=== PATIENT | female | born 1985 | race Caucasian/White ===

== ENCOUNTER → 2016-10-21 | Outpatient (CLI) | payer OTHER | END | disposition home or self-care (01) | LOC: C.LABMFLN 17:02 | PROVIDERS: ATTEND Family Medicine | DX: R35.0 Frequency of micturition (principal); J02.9 Acute pharyngitis, unspecified ==

== ENCOUNTER → 2016-12-27 | Outpatient (CLI) | payer OTHER ==
[2016-12-27 10:06] LABS: BASO % 0.3 %; BASO ABS # 0.02 K/uL (0-0.2); COMPLETE YES; EOS % 2.9 %; HEMATOCRIT 36.7 % (37-47); IG% 0.3 %; LYMPH % 19.4 %; LYMPH ABS # 1.29 K/uL (1.2-3.4); MEAN CELL VOLUME 88.6 fL (80-100); MEAN CORPUSCULAR HEMOGLOBIN 31.6 pg (25-34); MEAN CORPUSCULAR HGB CONC 35.7 g/dl (32-36); MEAN PLATELET VOLUME 9.7 fL (7.4-10.4); MONO % 7.8 %; NEUT % 69.3 %; PLATELET COUNT 211 K/uL (130-400); RED BLOOD COUNT 4.14 M/uL (4.2-5.4); WHITE BLOOD COUNT 6.65 K/uL (4.8-10.8)
[2016-12-27 11:06] LABS: URINE APPEARANCE CLEAR (CLEAR); URINE BILIRUBIN NEG (NEG); URINE COLOR YELLOW; URINE NITRITE NEG (NEG); URINE SPECIFIC GRAVITY 1.019 (1.000-1.030); UROBILINOGEN NEG (NEG)
[2016-12-27 11:13] LABS: MANUAL MICROSCOPIC REQUIRED? NO; REVIEW REQ? NO
[2016-12-30 10:27] LABS: CHLAMYDIA TRACH RNA*** NOT DETECTED (NOT DETECTED); GC (NEIS GONORRHOEAE)RNA** NOT DETECTED (NOT DETECTED)
== END | disposition home or self-care (01) ==
LOC: C.LAB1850 09:10
PROVIDERS: ATTEND Obstetrics & Gynecology
DX: Z34.01 Encounter for supervision of normal first pregnancy, first trimester (principal)

== ENCOUNTER → 2017-01-23 | Outpatient (CLI) | payer OTHER ==
[2017-01-23 15:37] LABS: URINE APPEARANCE CLEAR (CLEAR); URINE BILIRUBIN NEG (NEG); URINE COLOR YELLOW; URINE NITRITE NEG (NEG); URINE SPECIFIC GRAVITY 1.033 (1.000-1.030); UROBILINOGEN NEG (NEG); ZZUR CULT IF INDIC CLEAN CATCH NO
[2017-01-23 15:45] LABS: MANUAL MICROSCOPIC REQUIRED? NO; REVIEW REQ? NO
== END | disposition home or self-care (01) ==
LOC: C.LAB 14:56
PROVIDERS: ATTEND Family Medicine
DX: Z33.1 Pregnant state, incidental (principal); R10.2 Pelvic and perineal pain

== ENCOUNTER → 2017-02-12 | Outpatient (CLI) | payer OTHER ==
[~2017-02-12] MED LIST: ADVIN10/60 INH; CEPH500C2 PO; CETI10TA84 PO; PRENTAB26 PO; VNTHFA/IN INH
== END | disposition home or self-care (01) ==
LOC: C.LAB1850 16:20
PROVIDERS: ATTEND Obstetrics & Gynecology
DX: Z34.02 Encounter for supervision of normal first pregnancy, second trimester (principal)

== ENCOUNTER 2017-03-18 13:59 | Emergency (ER) | payer OTHER ==
[~2017-03-18] VITALS: Ht 162.6 cm; Wt 71.9 kg
[2017-03-18 14:11] VITALS: TEMP 36.8; Ht 162.6 cm; Wt 71.9 kg
[2017-03-18] MEDS ORDERED: XYLOCAINE 1%/SOD BICARB 20 ML VIAL INFIL ONE (14:45)
[2017-03-18] MEDS ORDERED: PRENTAB26 PO (14:46)
[2017-03-18] MEDS ORDERED: VNTHFA/IN INH (14:46)
[2017-03-18] MEDS ORDERED: ADVIN10/60 INH (14:46)
[2017-03-18] MEDS ORDERED: CETI10TA84 PO (14:46)
[2017-03-18] MEDS ORDERED: CEPH500C2 PO (15:32)
[2017-03-18 16:05] VITALS: BP 125/78; PULSE 92; O2SAT 98
--- NOTE | 2017-03-18 16:32 | EMERGENCY ROOM VISIT NOTE ---
History First contact with patient: 14:28 Chief Complaint: INFECTION Stated Complaint: INFECTION L GROIN,RED,INFALMMED,POSS ABSCESS Nursing Triage Summary: Pt states she is 21 wks . Pt reports "I have an infection in my left groin area from when I was shaving. I had it drained last week and was on clinda. I still have a couple days left of that, but it's just getting worse." History of Present Illness The patient is a 31 year old female who is 21 weeks presents to the Emergency Room with complaints of abscess in the left wing region. The patient states that her father is Dr. Horner in last week she had him drain the abscess. He placed her on clindamycin. She has been taking the clindamycin but states there has been no improvement of the abscess. The patient denies any current drainage. She states it is very painful. She states that her father did not culture the drainage when he did the I&D. Review of Systems 10 system review was performed and was negative unless stated otherwise history of present illness. Past Medical/Surgical History Asthma, skin problems Social History Smoking Status: Never Smoker Alcohol Use: none Drug Use: none Marital Status: Housing Status: lives with family Occupation Status: employed Current/Historical Medications Scheduled Cephalexin Monohydrate (Keflex), 500 MG PO QID Cetirizine (Zyrtec), 10 MG PO QPM Fluticasone Prop/Salmeterol (Advair Diskus 100/50 60 Dose), 1 PUFF INH BID Multivit/Min/Iron/Fol Ac/Pren ( Vitamin), 1 TAB PO DAILY Scheduled PRN Albuterol Hfa (Ventolin Hfa), 2-4 PUFFS INH Q6H PRN for SOB/Wheezing Physical Exam Vital Signs Date Time Temp Pulse Resp B/P (MAP) Pulse Ox O2 Delivery O2 Flow Rate FiO2 03/18/17 16:05 92 18 125/78 98 03/18/17 14:11 36.8 106 18 132/75 98 Room Air Physical Exam GENERAL: 31-year-old female appears in no acute distress. MENTAL Status: Alert and oriented 3. ABDOMEN: Abdomen is protuberant consistent with . There is an erythematous raised lump in the left groin which is tender to palpation. There is central fluctuance noted but no drainage noted. Medical Decision & Procedures Procedure I&D of abscess: The area was prepped with Betadine 3. The area was anesthetized with 1% buffered lidocaine. A small incision was made using an 11 blade scalpel. A large amount of purulent drainage was expressed. A culture was obtained. Using a forceps the loculated area inside was broken up any large amount of very thick yellow drainage was expressed. Antibiotic ointment and a bandage was applied. The patient tolerated procedure well. ED Course The patient was evaluated. I&D was performed as above. The patient was discharged home in stable condition. Medical Decision Differential diagnosis include abscess, folliculitis, lymphadenopathy [place] Drug Monitoring Program Search Results: patient reviewed within database Medication Reconcilliation Current Medication List: was personally reviewed by [place] Blood Pressure Screening Patient's blood pressure: Normal blood pressure Impression Primary Impression: Abscess Departure Information Dispostion Home / Self-Care Condition GOOD Prescriptions Cephalexin Monohydrate (KEFLEX) 500 Mg Cap 500 MG PO QID for 10 Days, #40 CAP Prov: Lu Teague, PA-C 03/18/17 Forms WORK / SCHOOL INSTRUCTIONS, HOME CARE DOCUMENTATION FORM, IMPORTANT VISIT INFORMATION Patient Instructions My [facility] Additional Instructions Tylenol as needed for pain. Change bandage daily as it he comes soiled. Warm compresses to the affected area as much as possible. Discontinue clindamycin. Take Keflex as prescribed.
== END 2017-03-18 16:06 | disposition home or self-care (01) ==
LOC: C.EDB 14:02 → C.EDD 16:06
DX: O99.712 Diseases of the skin and subcutaneous tissue complicating pregnancy, second trimester (principal); Z3A.21 21 weeks gestation of pregnancy

== ENCOUNTER → 2017-05-07 | Outpatient (CLI) | payer OTHER ==
[~2017-05-07] MED LIST changes: -CEPH500C2 PO
[2017-05-07 17:08] LABS: HEMATOCRIT 37.4 % (37-47); HEMOGLOBIN 12.8 g/dL (12.0-16.0)
== END | disposition home or self-care (01) ==
LOC: C.LAB1850 15:30
PROVIDERS: ATTEND Obstetrics & Gynecology
DX: Z34.03 Encounter for supervision of normal first pregnancy, third trimester (principal); Z3A.00 Weeks of gestation of pregnancy not specified

== ENCOUNTER → 2017-05-17 | Outpatient (CLI) | payer OTHER | END | disposition home or self-care (01) | LOC: C.LAB 08:04 | PROVIDERS: ATTEND Obstetrics & Gynecology | DX: O28.1 Abnormal biochemical finding on antenatal screening of mother (principal); Z3A.00 Weeks of gestation of pregnancy not specified ==

== ENCOUNTER 2017-05-31 20:22 | Outpatient (CLI) | payer OTHER | END 2017-05-31 21:28 | disposition home or self-care (01) | LOC: C.LD 20:22 → C.OPB 20:22 | PROVIDERS: ATTEND Obstetrics & Gynecology | DX: O36.8190 Decreased fetal movements, unspecified trimester, not applicable or unspecified (principal); Z3A.00 Weeks of gestation of pregnancy not specified ==

== ENCOUNTER → 2017-07-01 | Outpatient (CLI) | payer OTHER | END | disposition home or self-care (01) | LOC: C.LABSPEC 17:36 | PROVIDERS: ATTEND Obstetrics & Gynecology | DX: Z34.03 Encounter for supervision of normal first pregnancy, third trimester (principal) ==

== ENCOUNTER 2019-03-25 19:49 | Inpatient (IN) ==
[2019-03-25] MEDS ORDERED: ONDANSETRON INJ 2 MG/ML 2 ML VIAL IV STA (21:34)
[2019-03-25] MEDS ORDERED: SODIUM CHLORIDE 0.9% 1000ML 1,000 ML IV ONE (21:34)
[2019-03-25] MEDS ORDERED: MoRPHine SULFATE 4 MG/ML 1 ML CARP\\VIAL IV STA (21:34)
[2019-03-25] MEDS ORDERED: ACETAMINOPHEN 1,000 MG/100 ML VIAL IV STA (21:36)
[2019-03-25] MEDS ORDERED: METOCLOPRAMIDE HCL INJ 5 MG/ML 2 ML VIAL IV STA (22:12)
[2019-03-25] MEDS ORDERED: cefOXitin 1,000 MG/50 ML BAG IV STA (23:37)
--- NOTE | 2019-03-26 00:01 | History & Physical Report ---
Date of Service March 25, 2019 Assessment & Plan (1) Biliary colic: Patient is for laparoscopic cholecystectomy We will admit her to the hospital proceed in the morning History of Present Illness Primary Care Provider: Bahman Horner MD Patient has been having right upper quadrant pain and nausea Over the past 24 to 48 hours which has persisted She had an ultrasound which shows a stone in the gallbladder and significant distention Allergies Allergy/AdvReac Type Severity Reaction Status Date / Time Iodinated Contrast Media Allergy Intermediate ASTHMA Verified 03/25/19 21:47 ATTACK Intravenous Dye Allergy breathing Uncoded 03/25/19 21:47 difficulty Home Medications Home Medications Medication Instructions Recorded Confirmed Type albuterol sulfate 90 mcg/actuation 2 puffs INH UD PRN gm 09/17/18 03/25/19 History aerosol inhaler cetirizine 10 mg tablet 10 mg PO DAILY 09/17/18 03/25/19 History montelukast 10 mg tablet 10 mg PO QPM 09/17/18 03/25/19 History L norgest/e.estradiol-e.estrad 1 tab PO DAILY #91 ea 12/29/18 03/25/19 Rx 0.15 mg-30 mcg (84)/10 mcg(7) tabs,3mos amitriptyline 10 mg PO DIRECTED PRN 03/25/19 03/25/19 History ondansetron HCl 4 mg PO DIRECTED PRN 03/25/19 03/25/19 History Past Med/Surg History Social History Feels Safe at Home: Yes Smoking Status: Never smoker Hx Alcohol Use: No Review of Systems All systems reviewed & are unremarkable except as noted in HPI & below Physical Exam Constitutional: well developed and well nourished; no acute distress Eyes: + anicteric sclerae Respiratory: normal respiratory effort; no respiratory distress Cardiovascular: Rate/Rhythm: regular rate Gastrointestinal (Abdomen): Inspection/Auscultation: abdomen not distended Skin: no rashes, warm and dry Neurologic: awake Psychiatric: Orientation: alert Results & Data Vital Signs (Past 12 Hours) Vital Signs Temp Pulse Pulse Resp BP BP Pulse Ox 03/25/19 23:22 85 20 115/76 99 03/25/19 20:17 36.9 C 88 20 125/85 98 I have reviewed her ultrasound
--- NOTE | 2019-03-26 00:38 | Emergency Department Note ---
History of Present Illness General Chief complaint: Abdominal Pain Stated complaint: RUQ PAIN, SEVERE NAUSEA History of Present Illness Maximum Pain Intensity: 4 This 33 yo presents to the ER complaining of abdominal pain Location: Right upper quadrant Quality: Painful Severity: Moderate Duration: 1 day Timing: Started yesterday Context: Pain persisted and patient came in Modifying factors: better with nothing; worse with palpation Patient spoke to the on-call doctor and had outpatient labs and ultrasound. Pain persisted and patient came in. All testing was done earlier this afternoon. Patient denies chest pain, dyspnea, fevers, vomiting, diarrhea, urinary symptoms. Symptoms were worse with eating grilled cheese with tomato. Home Medications Home Medications Medication Instructions Recorded Confirmed Type albuterol sulfate 90 mcg/actuation 2 puffs INH UD PRN gm 09/17/18 03/25/19 History aerosol inhaler cetirizine 10 mg tablet 10 mg PO DAILY 09/17/18 03/25/19 History montelukast 10 mg tablet 10 mg PO QPM 09/17/18 03/25/19 History L norgest/e.estradiol-e.estrad 1 tab PO DAILY #91 ea 12/29/18 03/25/19 Rx 0.15 mg-30 mcg (84)/10 mcg(7) tabs,3mos amitriptyline 10 mg PO DIRECTED PRN 03/25/19 03/25/19 History ondansetron HCl 4 mg PO DIRECTED PRN 03/25/19 03/25/19 History Allergies Allergy/AdvReac Type Severity Reaction Status Date / Time Iodinated Contrast Media Allergy Intermediate ASTHMA Verified 03/25/19 21:47 ATTACK Intravenous Dye Allergy breathing Uncoded 03/25/19 21:47 difficulty Past Med/Surg History Medical History Asthma Breast lump IBS (irritable bowel syndrome) Migraine Suprapubic discomfort Surgical History S/P colonoscopy Status post wisdom tooth extraction Family History Grandmother (Maternal) Stroke Grandfather (Maternal) Hyperlipidemia Father Hypertension Other Thyroid disease Denies family history of Ovarian cancer Breast cancer Colorectal cancer Social History Feels Safe at Home: Yes Smoking Status: Never smoker Hx Alcohol Use: No Review of Systems A total of 10 systems reviewed and were otherwise negative Physical Exam Vital Signs Vital Signs - 24 hr 03/25/19 20:17 03/25/19 23:22 Temperature 36.9 C Temperature Source Oral Pulse Rate 88 Pulse Rate [Right Finger] 85 Respiratory Rate 20 20 Respiratory Effort / Characteristics Non-Labored Spontaneous Non-Labored Respiratory Depth Normal Normal Blood Pressure 125/85 Blood Pressure [Left Arm] 115/76 Blood Pressure Mean 98 Blood Pressure Mean [Left Arm] 89 Blood Pressure Position [Left Arm] Sitting Pulse Oximetry 98 99 Oxygen Delivery Method Room Air Room Air Sepsis Action Taken by Nursing No Action Required VITALS: Vitals are noted on the nurse's note and reviewed by myself. Vital signs stable. GENERAL: Pleasant female, in no acute distress, nondiaphoretic, well-developed well-nourished. SKIN: Capillary reflex less than 2 seconds. HEENT: Normocephalic. PERRLA. EOMI. Nares patent. Mucous membranes moist. Neck is supple without nuchal rigidity. HEART: Regular rate and rhythm without murmurs gallops or rubs. LUNGS: Clear to auscultation bilaterally without wheezes, rales or rhonchi. No retractions or accessory muscle use. ABDOMEN: Positive bowel sounds x 4. Normal tympanic percussion. Soft, tender to palpation right upper quadrant, without masses or organomegaly. Bedoya sign positive. No guarding or rebound tenderness. No CVA tenderness MUSCULOSKELETAL: No gross musculoskeletal defects. NEURO: Patient was alert and oriented to person place and time. No focal neurological deficits. Course Administered Medications Discontinued Medications Sodium Chloride (Nss 1000ml) 1,000 mls @ 999 mls/hr IV .Q1H1M ONE Stop: 03/25/19 22:34 Last Infusion: 03/25/19 23:23 Dose: 0 mls/hr Documented by: [id number] Admin: 03/25/19 21:57 Dose: 999 mls/hr Documented by: [id number] Acetaminophen (Ofirmev) 1,000 mg in 100 mls @ 400 mls/hr IV NOW STA Stop: 03/25/19 21:50 Last Infusion: 02/13/20 22:27 Dose: 0 mls/hr Documented by: [id number] Admin: 03/25/19 21:58 Dose: 400 mls/hr Documented by: [id number] Cefoxitin Sodium (Mefoxin) 1,000 mg in 50 mls @ 100 mls/hr IV NOW STA Stop: 03/26/19 00:06 Last Admin: 03/26/19 00:02 Dose: 100 mls/hr Documented by: [id number] Metoclopramide HCl (Reglan) 10 mg IV NOW STA Stop: 03/25/19 22:13 Last Admin: 03/25/19 22:17 Dose: 10 mg Documented by: [id number] Morphine Sulfate (Morphine Sulfate) 4 mg IV NOW STA Stop: 03/25/19 21:35 Last Admin: 03/25/19 22:18 Dose: Not Given Documented by: [id number] Ondansetron HCl (Zofran) 4 mg IV NOW STA Stop: 03/25/19 21:35 Last Admin: 03/25/19 22:18 Dose: Not Given Documented by: [id number] Medical Decision Making Medical Records Attestation: I reviewed the patient's medical records. Home Medications Current Medication List: was personally reviewed by me Laboratory Data Attestation: I reviewed the patient's lab results. Lab Results 03/25/19 03/25/19 Range/Units 22:00 22:09 Lipase 193 ([id number]) U/L POC Ur Test NEG (NEG) Imaging Data Attestation: I personally reviewed and interpreted this imaging study as follows: MDM Narrative Prior records/ancillary studies reviewed. Triage Nursing notes reviewed. Additional history obtained from . The patient's history was concerning for abdominal pain. Differential diagnosis: Etiologies such as appendicitis, diverticulitis, PUD, biliary pathology, UTI, pancreatitis, obstruction, mesenteric ischemia, aortic pathology, infections, inflammatory bowel disease, renal colic, as well as others were entertained. Physical examination findings: As above. ER treatment provided: IV fluids, Reglan, Tylenol On reassessment the patient felt better. Diagnostics interpreted by me: The labs revealed no leukocytosis, negative hCG Imaging studies: US RUQ: 8 x 6 x 6 mm right hepatic are rounded hyperechoic lesion may represent a small hemangioma.. Consider follow-up. 1.2 cm stone at the gallbladder fundus. Negative for pericholecystic fluid or gallbladder wall thickening. Distended gallbladder at 9 cm. Common bile duct is normal at 4.5 mm. Radiologist: Christiano Elias MD Consultation: A consultation was placed with the surgeon Dr. Quintana. The case was discussed and diagnostics were reviewed. The patient was evaluated in the ER for further treatment. Exam and history seem consistent with biliary colic. Surgery was consulted. He will evaluate the patient. Patient was given antibiotics and placed n.p.o. Patient was admitted to the surgical service. By the evaluation outlined above emergent etiologies such as appendicitis, diverticulitis, PUD, UTI, pancreatitis, obstruction, mesenteric ischemia, aortic pathology, inflammatory bowel disease, renal colic, as well as others were deemed relatively unlikely. The pt informed about the findings as listed above. All questions were answered and pleased with the treatment. Case reviewed with my attending The chart was completed utilizing [employer] Speech voice recognition software. Grammatical errors, random word insertions, pronoun errors, and incomplete sentences are an occassional consequence of this system due to software limitations, ambient noise, and hardware issues. Any formal questions or concerns about the content, text, or information contained within the body of this dictation should be directly addressed to the physician assistant brand manager for clarification. Impression & Plan Biliary colic Discharge Plan Visit Data Chief Complaint: Abdominal Pain Stated Complaint: RUQ PAIN, SEVERE NAUSEA ED Provider: Toro Chaidez ED Midlevel Provider: Fanny Rose Discharge Problem: Biliary colic Patient Disposition: Being Evaluated by Surgeon Condition: Good Forms Stand Alone Forms: [facility], Call Back Authorization Prescriptions Prescriptions: No Action L norgest/e.estradiol-e.estrad [Camrese] 0.15 mg-30 mcg (84)/10 mcg (7) tablets,dose pack,3 month 1 tab PO DAILY Qty: 91 RF: 0 albuterol sulfate 90 mcg/actuation HFA aerosol inhaler 2 puffs INH UD PRN (Reason: Shortness Of Breath) RF: 0 montelukast 10 mg tablet 10 mg PO QPM RF: 0 cetirizine 10 mg tablet 10 mg PO DAILY RF: 0 ondansetron HCl 4 mg tablet 4 mg PO DIRECTED PRN (Reason: Nausea) RF: 0 amitriptyline 10 mg tablet 10 mg PO DIRECTED PRN (Reason: abdominal cramping) RF: 0 Referrals Referrals: Bahmna Horner MD [Primary Care Provider] -
[2019-03-26] MEDS ORDERED: ALBUTEROL HFA 8 GM INHALER INH PRN (01:26)
[2019-03-26] MEDS ORDERED: MoRPHine SULFATE 2 MG/ML CARP IV PRN (01:26)
[2019-03-26] MEDS ORDERED: PROMETHAZINE HCL 25 MG in SODIUM CHLORIDE 0.9% 50 ML IV PRN (01:26)
[2019-03-26] MEDS ORDERED: MoRPHine SULFATE 4 MG/ML 1 ML CARP\\VIAL IV PRN (01:26)
[2019-03-26] MEDS ORDERED: PROMETHAZINE HCL 12.5 MG in SODIUM CHLORIDE 0.9% 50 ML IV PRN (01:26)
[2019-03-26] MEDS: SODIUM CHLORIDE 0.9% 1000ML 1,000 ML IV SCH ×2 (01:46→13:51)
[2019-03-26] MEDS: ONDANSETRON INJ 2 MG/ML 2 ML VIAL IV PRN ×3 (01:49→23:58)
--- NOTE | 2019-03-26 06:44 | History & Physical Bridge Note ---
Date of Service March 26, 2019 History & Physical Bridge Note I have examined the patient, reviewed the History & Physical and in the interval since the performance of the History & Physical I have noted the following changes of clinical significance: no changes noted
[2019-03-26] MEDS ORDERED: SUCCINYLCHOLINE CHLORIDE 20 MG/ML 10 ML VIAL ONE (06:47)
[2019-03-26] MEDS ORDERED: PROPOFOL IV EMULSION 10 MG/ML 20 ML VIAL IV ONE (06:47)
[2019-03-26] MEDS ORDERED: NEOSTIGMINE METHYLSULFATE 5 MG/5 ML SYR ONE (06:47)
[2019-03-26] MEDS ORDERED: LIDOCAINE HCL 2% 2 ML VIAL/AMP(20MG/ML) INFIL ONE (06:47)
[2019-03-26] MEDS ORDERED: GLYCOPYRROLATE 0.2 MG/ML VIAL ONE (06:47)
[2019-03-26] MEDS ORDERED: ONDANSETRON INJ 2 MG/ML 2 ML VIAL ONE (06:47)
[2019-03-26] MEDS ORDERED: ePHEDrine sulfate 50 MG/ML AMP ONE (06:47)
[2019-03-26] MEDS ORDERED: PHENYLEPHRINE HCL 10 MG/ML VIAL ONE (06:47)
[2019-03-26] MEDS ORDERED: DEXAMETHASONE SOD INJ 4 MG/ML VIAL ONE (06:47)
--- NOTE | 2019-03-26 06:48 | Ultrasound Report ---
US gallbladder HISTORY: 33 years-old Female ruq pain acute right upper quadrant abdominal pain COMPARISON: Renal ultrasound 03/25/2019 TECHNIQUE: Multiple real-time sonographic images of the abdominal right upper quadrant were obtained assessing grayscale appearance and color flow FINDINGS: Visualized pancreas appears unremarkable. There is a 8 x 6 x 6 mm hyperechoic lesion of the right hep atic lobe without appreciable internal flow. Liver is otherwise unremarkable. Patent portal vein. Cho lelithiasis with large gallstone measuring up to 1.2 cm. The gallbladder slightly distended longitudi halina. No gallbladder wall thickening or pericholecystic fluid. Sonographic Bedoya sign reported as n egative. Normal common bile duct, 4.5 mm. Imaged right kidney is unremarkable without hydronephrosis. IMPRESSION: 1. Cholelithiasis without sonographic evidence of acute cholecystitis. 2. No biliary ductal dilation. 3. Subcentimeter echogenic lesion of the right hepatic lobe possibly represents a hepatic hemangioma. ACT 112: Negative or not required by law. The above report was generated using voice recognition software. It may contain grammatical, syntax o r spelling errors. Electronically signed by: Tariq Ivey M.D. 03/26/2019 6:46 AM
[2019-03-26] MEDS ORDERED: MIDAZOLAM HCL 1 MG/ML 2ML VIAL ONE (06:52)
[2019-03-26] MEDS ORDERED: fentaNYL citrate 100 MCG/2 ML VIAL ONE ×2 (06:52→07:46)
[2019-03-26] MEDS ORDERED: ATROPINE SULFATE 0.1 MG/ML 10ML SYR IV PRN (06:59)
[2019-03-26] MEDS ORDERED: PROMETHAZINE HCL 6.25 MG in SODIUM CHLORIDE 0.9% 50 ML IV PRN (06:59)
[2019-03-26] MEDS ORDERED: ONDANSETRON INJ 2 MG/ML 2 ML VIAL IV PRN (06:59)
[2019-03-26] MEDS ORDERED: KETOROLAC 30 MG/ML VIAL IV PRN (06:59)
[2019-03-26] MEDS ORDERED: SCOPOLAMINE 1.5 MG TDSY ONE (06:59)
[2019-03-26] MEDS ORDERED: BUPIVACAINE 0.5 % 5 MG/1 ML MPF 30ML VIAL ONE (07:00)
[2019-03-26] MEDS ORDERED: CONRAY 60% 50 ML VIAL ONE (07:00)
[2019-03-26] MEDS ORDERED: SCOPOLAMINE 1.5 MG TDSY TD ONE (07:00)
[2019-03-26] MEDS ORDERED: ACETAMINOPHEN 1000 MG/100 ML IV IV ONE (07:02)
--- NOTE | 2019-03-26 07:06 | Anesthesiology Consultation ---
Date of Service March 26, 2019 Assessment & Plan (1) Encounter for pre-operative examination: Chart Review Chart Review: Acceptable Risk for Surgery History Surgery Operation Date: 03/26/19 07:15 Proposed Procedures p Laparoscopic Cholecystectomy - Warren Quintana MD, FACS Height/Weight Height: 5 ft 4 in Weight: 61.1 kg Allergies Allergy/AdvReac Type Severity Reaction Status Date / Time Iodinated Contrast Media Allergy Intermediate ASTHMA Verified 03/25/19 21:47 ATTACK Medications Home Medications Medication Instructions Recorded Confirmed Last Taken albuterol sulfate 90 mcg/actuation 2 puffs INH UD PRN gm 09/17/18 03/25/19 Unknown aerosol inhaler cetirizine 10 mg tablet 10 mg PO DAILY 09/17/18 03/25/19 Unknown montelukast 10 mg tablet 10 mg PO QPM 09/17/18 03/25/19 Unknown L norgest/e.estradiol-e.estrad 1 tab PO DAILY #91 ea 12/29/18 03/25/19 Unknown 0.15 mg-30 mcg (84)/10 mcg(7) tabs,3mos amitriptyline 10 mg PO DIRECTED PRN 03/25/19 03/25/19 Unknown ondansetron HCl 4 mg PO DIRECTED PRN 03/25/19 03/25/19 03/25/19 17:00 Active Medications Generic Name Dose Route Start Last Admin Trade Name Freq PRN Reason Stop Dose Admin Cefoxitin Sodium 1,000 mg/ 60 mls @ 100 mls/hr 03/26/19 06:00 03/26/19 06:10 Dextrose IV 04/05/19 05:59 Infused Q6H JANIE Infusion Sodium Chloride 1,000 mls @ 80 mls/hr 03/26/19 01:26 03/26/19 01:46 Nss 1000ml IV 04/25/19 01:25 80 mls/hr .[id number] JANIE Administration Ondansetron HCl 4 mg 03/26/19 01:26 03/26/19 01:49 Zofran IV 04/25/19 01:25 4 mg [id number] PRN Administration Nausea NPO Date Last Intake of Fluids: 03/26/19 Time Last Intake of Fluids: 01:10 Date Last Intake of Solids: 03/26/19 Time Last Intake of Solids: 01:10 Past Medical History Medical History Asthma Breast lump IBS (irritable bowel syndrome) Migraine Suprapubic discomfort Past Family History Family History Grandmother (Maternal) Stroke Grandfather (Maternal) Hyperlipidemia Father Hypertension Other Thyroid disease Denies family history of Ovarian cancer Breast cancer Colorectal cancer Past Surgical History Surgical History S/P colonoscopy Status post wisdom tooth extraction Past Anesthesia History No Hx of Anesthesia Complications History of PONV History of PONV (After wisdom teeth) Social History Smoking Status: Never smoker Hx Alcohol Use: No Hx Substance Use: No Physical Exam Vital Signs Last Vital Signs Temp 36.9 C 03/26/19 06:49 Pulse 81 03/26/19 06:49 Resp 16 03/26/19 06:49 BP 117/73 03/26/19 06:49 Pulse Ox 98 03/26/19 06:49 Testing Laboratory Results 03/25/19 22:09 POC Ur Test NEG
[2019-03-26] MEDS ORDERED: ALBUTEROL 0.083% NEBU SOLN 3 ML VIAL INH PRN (07:08)
[2019-03-26] MEDS ORDERED: LACTATED RINGER'S 1,000 ML IV SCH (07:15)
[2019-03-26] MEDS ORDERED: CHECK SCOPOLAMINE PATCH PLACEMENT SCH (08:00)
[2019-03-26] MEDS ORDERED: ACETAMINOPHEN 1,000 MG/100 ML VIAL IV ONE (08:12)
--- NOTE | 2019-03-26 08:12 | Post Operative Brief Note ---
PG Immediate Post Op with CF Date of Surgery March 26, 2019 Pre & Post Diagnosis Operation Date: 03/26/19 07:15 Pre-Op Diagnosis: Biliary Colic Post-Op Diagnosis: Biliary Colic chronic cholecystitis I identified the patient and participated in the time-out.: Yes Procedure Operation Date: 03/26/19 07:15 Actual Procedures p Laparoscopic Cholecystectomy(Not Applicable) - Warren Quintana MD, FACS Surgeon Warren Quintana MD, FACS Casino Runner Venkat Natarajan Estimated Blood Loss 10 Findings Consistent with Post-Op Diagnosis Specimens Specimen Description: Permanent: A. Gallbladder and contents
[2019-03-26] MEDS ORDERED: ROCURONIUM BROMIDE 10 MG/ML 5 ML VIAL ONE (08:31)
[2019-03-26] MEDS ORDERED: KETOROLAC 30 MG/ML VIAL ONE (08:31)
[2019-03-26] MEDS ORDERED: ALBUTEROL HFA INHALER 8.5 GM ONE (08:31)
[2019-03-26] MEDS: fentaNYL citrate 100 MCG/2 ML VIAL IV PRN ×2 (08:52→09:14)
--- NOTE | 2019-03-26 08:58 | Operative Report ---
DATE OF OPERATION: 03/26/2019 NAME OF OPERATION: Laparoscopic cholecystectomy. PREOPERATIVE DIAGNOSIS: Biliary colic. POSTOPERATIVE DIAGNOSIS: Biliary colic with chronic cholecystitis. STAFF SURGEON: Warren Quintana M.D. SENIOR QUALITATIVE RESEARCHER: Nancy Natarajan. ANESTHESIA: General. DESCRIPTION OF PROCEDURE: The patient was brought in the operating room and placed on the operating table in supine position. Her abdomen was prepped and draped in usual fashion. My speech and language assistant helped with prepping, draping, removal of the gallbladder and closure of the wound. A 0.5% plain Marcaine was used to anesthetize all incisions. Incision was made above the umbilicus, carrying dissection down to the fascia, placing a Veress needle producing pneumoperitoneum. An 11 mm port was placed this level and then under visualization, three 5 mm ports were placed, 1 cephalad and 2 laterally. Gallbladder was very distended. It was grasped and retracted. It was aspirated of bile. Dissection was carried out the katie hepatis indicating significant scar tissue consistent with chronic cholecystitis. Cystic duct was identified, clipped and transected. The cystic artery had 2 branches. These were clipped and transected. The patient had a small duct of Luschka in the liver bed which was clipped. The gallbladder dissected away from the liver bed in the usual fashion, showing some scar tissue consistent with chronic inflammation. Gallbladder was placed into an Endobag and removed through the umbilical site. I did have to enlarge the fascial defect a little bit slightly secondary to the size of the stone. At this point, after appropriate hemostasis and irrigation, all ports were removed. Fascia at the umbilicus closed using 0 Vicryl suture. Skin reapproximated using subcuticular 4-0 Monocryl, Steri-Strips placed in the 5 mm sites, Dermabond at the umbilicus. The patient was transferred to recovery room in stable condition. I attest to the content of the Intraoperative Record and any orders documented therein. Any exception s are noted below.
--- NOTE | 2019-03-26 09:10 | Anesthesiology Progress Note ---
Date of Service March 26, 2019 Anesthesia Post Procedure Vital Signs Vital Signs: Temp Pulse Pulse Pulse Resp BP BP 03/26/19 09:05 37 C 69 14 124/71 03/26/19 08:55 60 14 116/69 03/26/19 08:45 69 14 123/75 03/26/19 08:35 36.8 C 86 12 120/72 03/26/19 06:58 36.8 C 93 H 18 109/73 03/26/19 06:49 36.9 C 81 16 03/26/19 01:10 36.8 C 75 16 94/47 L 03/26/19 00:48 72 20 113/81 03/25/19 23:22 85 20 115/76 03/25/19 20:17 36.9 C 88 20 125/85 BP Pulse Ox 03/26/19 09:05 100 03/26/19 08:55 100 03/26/19 08:45 100 03/26/19 08:35 100 03/26/19 06:58 99 03/26/19 06:49 117/73 98 03/26/19 01:10 97 03/26/19 00:48 98 03/25/19 23:22 99 03/25/19 20:17 98 Pain Intensity Abdomen: Pain Intensity: 2 Transfer of Care Handoff Completed per policy Notes Mental Status: alert / awake / arousable Patient Amnestic to Procedure: Yes Nausea / Vomiting: adequately controlled Pain: adequately controlled Airway Patency, RR, SpO2: stable & adequate BP & HR: stable & adequate Hydration State: stable & adequate Anesthetic Complications: no major complications apparent
[2019-03-26] MEDS ORDERED: ACETAMINOPHEN 325 MG TAB PO PRN (09:42)
[2019-03-26] MEDS ORDERED: IBUPROFEN 600 MG TAB PO PRN (09:42)
[2019-03-26] MEDS ORDERED: HYDROCODONE/ACETAMOPHEN 5/325MG TAB PO PRN (09:42)
[2019-03-26] MEDS: HYDROCODONE/ACETAMOPHEN 5/325MG TAB PO PRN ×3 (13:49→22:22)
[2019-03-26] MEDS ORDERED: MONTELUKAST SODIUM 10 MG TABLET PO SCH (21:00)
[2019-03-26] MEDS: KETOROLAC 30 MG/ML VIAL IV PRN (23:58)
[2019-03-27] MEDS: KETOROLAC 30 MG/ML VIAL IV PRN (06:20)
--- NOTE | 2019-03-27 09:25 | Surgery Progress Note ---
Date of Service March 27, 2019 Assessment & Plan (1) Biliary colic: Postoperative day #1, status post laparoscopic cholecystectomy Doing well Can discharge to home Discussed postoperative activity restrictions To call office on Friday for instructions about follow-up Subjective Postoperative day #1, status post laparoscopic cholecystectomy Having soreness Has passed gas Denies nausea and vomiting Tolerated regular diet Physical Exam Gastrointestinal (Abdomen): Inspection/Auscultation: normal bowel sounds and + abdominal surgical incision (Incisions are clean, dry and intact) Percussion/Palpation: + abdomen tender (Incisional only) and abdomen soft Results & Data Vital Signs (Past 12 Hours) Vital Signs Temp Pulse Pulse Resp BP BP Pulse Ox 03/27/19 08:03 36.9 C 67 16 114/71 97 03/27/19 08:00 37.1 C 65 18 110/74 98 03/26/19 23:05 36.9 C 67 16 113/67 97
--- NOTE | 2019-03-29 10:57 | Discharge Summary ---
Date of Service March 29, 2019 Admission HPI Per Admitting Provider Patient has been having right upper quadrant pain and nausea Over the past 24 to 48 hours which has persisted She had an ultrasound which shows a stone in the gallbladder and significant distention Principal Diagnosis Biliary Colic Cholelithiasis Discharge Exam Constitutional well developed and well nourished Gastrointestinal (Abdomen) Inspection/Auscultation: + abdominal surgical incision (c/d/i with steri-strips) Percussion/Palpation: + abdomen tender (mild deidre-incisionally) and abdomen soft Discharge Data Allergies Allergy/AdvReac Type Severity Reaction Status Date / Time Iodinated Contrast Media Allergy Intermediate ASTHMA Verified 03/25/19 21:47 ATTACK Procedures Performed Operation Date: 03/26/19 07:15 Actual Procedures p Laparoscopic Cholecystectomy(Not Applicable) - Warren Quintana MD, FACS Ordered Studies 03/25/19 21:34 US gallbladder Urgent Hospital Course (1) Biliary colic: This is a 33yF who presented to the [facility] ED on 03/25/19 with abdominal pain and nausea which over the past 24-48 hours has progressed. Workup included a RUQ US revealing cholelithiasis and a distended gallbladder. Patient was evaluated by surgery and she was deemed a candidate for surgical intervention and patient agreeable. On 03/26 the patient went to the OR with Dr. Quintana for a laparoscopic cholecystectomy. The patient tolerated the procedure well, see op note for full details. The patient recovered in the PACU and was transferred to the surgical nursing floor for overnight observation in stable condition. Post operatively the patient's diet was advanced as tolerated, she was voiding spontaneously, and pain remained well controlled. On POD#1 the patient was deemed stable for discharge to home. Surgical incisions clean, dry and intact. She was instructed to follow up in clinic within 1-2 weeks. Total Time Total Time Spent Total Time Spent (In Minutes): 10 Discharge Plan Discharge Items Patient Disposition: Home - Self-Care Reason For Visit: BILIARY COLIC Discharge Diagnosis: laparoscopic cholecystectomy Condition on Discharge: Good Activity: Per Instructions section Activity Comment: light activity for 3 weeks Lifting: No more than 10 pounds Bathing Comment: may shower tomorrow-03/27/19, no soaking in tubs Sexual Activity: When tolerated Exercise Comment: light activity for 3 weeks Driving/Machine Use: Resume 3 days after discharge Non-emergency contact: Primary Care Provider and Surgeon Call non-emergency contact if: you have any medication questions, your symptoms worsen, your pain is concerning for you, you have a fever, your temperature is above 101.5, your wound has increased redness, your wound has increased drainage and your wound pain has increased Follow-up/Referrals: Warren Quintana MD, FACS [Physician] - Bahman Horner MD [Primary Care Provider] - (PATIENT IS DECLINING FOLLOW UP VISIT WITH HER PCP DUE TO PCP BEING HER FATHER. SHE WILL MAKE APPT. WILL CALL DR QUINTANA'S OFFICE Friday03/29/19 FOR SURGICAL FOLLOW UP AND CALL PATIENT WITH THAT APPT.) Diet: Regular Addtl Attending Provider Instructions: SPECIAL CARE INSTRUCTIONS: * Cover incisions and change daily for comfort/drainage. may leave uncovered with dermabold * May use ibuprofen for pain as tolerated. * Expect some swelling and bruising. Call your doctor if: * Temperature above 101 degrees * Pain not relieved by pain medicine ordered * There is increased drainage or redness from any incision * You have any unanswered questions or concerns [phone]. FOLLOW UP VISIT: If not already scheduled, please call the office for a follow-up visit. OFFICE PHONE NUMBER: Dr. Quintana Office for 2 weeks- no sutures to remove Pending Studies at Discharge: Yes Studies:: surgical pathology Stand-Alone Forms: Call Back Authorization, [facility], Opioid Pain Management, Work/School Release (Inpt), Smoking Cessation Medications and DC Order Prescriptions: New hydrocodone-acetaminophen [[place]] 5-325 mg tablet 1 - 2 tab PO Q6H PRN (Reason: pain) Qty: 20 RF: 0 Continued L norgest/e.estradiol-e.estrad [[place]] 0.15 mg-30 mcg (84)/10 mcg (7) tablets,dose pack,3 month 1 tab PO DAILY Qty: 91 RF: 0 albuterol sulfate 90 mcg/actuation HFA aerosol inhaler 2 puffs INH UD PRN (Reason: Shortness Of Breath) RF: 0 montelukast 10 mg tablet 10 mg PO QPM RF: 0 cetirizine 10 mg tablet 10 mg PO DAILY RF: 0 ondansetron HCl 4 mg tablet 4 mg PO DIRECTED PRN (Reason: Nausea) RF: 0 amitriptyline 10 mg tablet 10 mg PO DIRECTED PRN (Reason: abdominal cramping) RF: 0 Discharge Orders: Discharge Order (Routine); Ordered 03/27/19 Ordered By: Sunny Chan/Other Patient Handouts: Surgery Prevent DVT After, DVT Prevent Admission Data Admit Date/Time: 03/26/19 00:19 Attending Provider: Warren Quintana Admit Provider: Warren Quintana Primary Care Provider: Bahman Horner Other Interventions: Discharge Summary Assessment (RN) Last Done: 03/27/19 08:03 DC Date/Time DO NOT enter until pt leaves facility: 03/27/19 10:28 Coding Level of Care Code D/C Day Management <30 mins Diagnoses Biliary colic K80.50
== END 2019-03-27 10:28 | disposition home or self-care (01) | DRG 419 ==
LOC: ED 19:49 → 3N 03-26 00:19

== ENCOUNTER 2020-05-25 13:32 | Inpatient (IN) ==
[2020-05-25] MEDS ORDERED: OXYTOCIN 30 UNITS/500 ML BAG IV PRN ×3 (14:01→21:18)
--- NOTE | 2020-05-25 14:14 | History & Physical Report ---
Date of Service May 25, 2020 Assessment & Plan (1) Active labor at term: PNL: Rh negative, RI, GBS neg, COVID neg -- Plan for Rhogam if needed after delivery pending baby's blood type Admit, labs, start IV Epidural when desired; anesthesiology consult placed Anticipate (2) : (3) Need for rhogam due to Rh negative mother: (4) Diet controlled gestational diabetes mellitus (GDM), antepartum: History of Present Illness Primary Care Provider: NO PCP Jeanette Dawson is a 34 y/o female currently at 38 +2 WGA with an NOMAN 06/06/20 as determined by LMP who is here for labor. Her was complicated by GDM and Rh- status. Patient reports having intermittent contractions that have been increasing in frequency over the past week. 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 While at home, she at lunch around 1200 and then began to have increasing frequency and intensity in contractions. She reports contractions occurring every 5 minutes and lasting 20-30 seconds each over the past ~2 hours. Patient reports + movement. No gross fluid loss. No bloody show. Had regular appointments with OB. Blood type: B- Antibody screen: neg Labs: Rubella: immune VDRL/RPR: NR Gonorrhea: neg Chlamydia: neg HIV: neg HbSAg: neg GBS: neg 05/11/2020 COVID-19 negative today, 05/25/20 Other screens: declined cfDNA CF/sma negative from G1 Allergies Allergy/AdvReac Type Severity Reaction Status Date / Time Iodinated Contrast Media Allergy Intermediate ASTHMA Verified 05/24/20 16:10 ATTACK Home Medications Medication Instructions Recorded Confirmed Type fluticasone 100 mcg-salmeterol 50 1 inh INHALATION BID #180 ea 08/24/19 05/24/20 Rx mcg/dose blistr powdr for inhalation acetone (urine) test #50 ea 12/31/19 05/24/20 Rx blood sugar diagnostic #150 ea 12/31/19 05/24/20 Rx blood-glucose meter #1 ea 12/31/19 05/24/20 Rx lancets 33 gauge #150 ea 12/31/19 05/24/20 Rx albuterol sulfate 90 mcg/actuation 2 puff INH UD PRN #18 g 04/15/20 05/24/20 Rx aerosol inhaler cetirizine 10 mg tablet 10 mg PO DAILY #60 tab 04/15/20 05/24/20 Rx vit no.[id number] 800 tab PO DAILY 04/25/20 05/24/20 History [ Vitamin] ondansetron HCl 4 mg tablet 4 mg PO Q8H PRN 05/24/20 05/24/20 History Patient History Medical History Abscess Acute gastritis Asthma Breast lump Breast lump or mass Encounter for anatomic survey Gestational diabetes mellitus (GDM) affecting IBS (irritable bowel syndrome) Low back pain Migraine Night sweats Polyuria Suprapubic discomfort Surgical History Hx laparoscopic cholecystectomy (03/26/19) Laparoscopic cholecystectomy. Dr. Quintana 03/26/19 S/P colonoscopy Status post wisdom tooth extraction Family History Grandmother (Maternal) Stroke Grandfather (Maternal) Hyperlipidemia Father Hypertension Grandfather Diabetes Hypertension Cancer skin Aunt Cancer thyroid, melanoma Uncle Cancer skin Mother Thyroid disease Denies family history of Ovarian cancer Breast cancer Colorectal cancer Social History Smoking Status: Never smoker Second Hand Exposure: No; Hx Alcohol Use: No Hx Substance Use: No Preferred Language: Mauritian Communication Ability: Effective Dedicated Driver Required: No Beliefs That Will Affect Care: Confucianism marital status: marital status details: Lonny [phone] Current Living Situation: Spouse Current Living Situation Comment: and son, 1 dog current occupational status: employed 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 Denies shortness of breath or cough. Denies chest pain. Denies breast pain. Denies dysuria or hematuria. Denies leg pain or leg swelling. Denies headache or changes in vision. Physical Exam Physical Exam: General: Alert, oriented. No acute distress. Cardiac: Regular rate and rhythm, no murmurs/rubs/gallops. Respiratory: Clear to auscultation bilaterally a/p, no wheezes/rales/rhonchi. No increased work of breathing. Symmetrical chest rise. No respiratory distress. Abdomen: Gravid. Vertex position. + heart tones. + palpable contractions. EFW 7-8# Pelvic: Dilation 5 cm; Effacement 75%; Station -2; mid; soft per Dr. Frias External FHT and external uterine monitors used; Category I tracing; moderate FHT variability. Lower Extremities: No lower extremity edema or swelling. No deep calf pain. Berna's negative bilaterally Results & Data ([facility]) Vital Signs (Past 12 Hours) Vital Signs Pulse BP 05/25/20 13:44 92 H 123/69 Laboratory Results 05/25/20 05/25/20 05/25/20 Range/Units 15:25 15:25 14:22 WBC 8.33 (4.8-10.8) K/uL RBC 4.02 L (4.2-5.4) M/uL Hgb 12.4 (12.0-16.0) g/dL Hct 36.1 L (37-47) % MCV 89.8 (80-100) fL MCH 30.8 (25-34) pg MCHC 34.3 (32-36) g/dL RDW Std Deviation 43.8 (36.4-46.3) fL RDW Coeff of Jenelle 13.3 (11.5-14.5) % Plt Count 185 (130-400) K/uL MPV 10.3 (7.4-10.4) fL COVID-19 Eval [facility] SARS-CoV-2, RNA, NAAT NEGATIVE (NEGATIVE) Supervising Physician Co-Signing Physician Notes Resident Physician Supervision Note: I was present with Dr. Fields during the history and exam. I discussed the case with the resident and agree with the findings and plan as documented in the note. Any exceptions or clarifications are listed here: Patient here with regular painful contractions. Cx exam as noted. Plan arom. She will ultimately desire epidural. plan bsgs. gbs negative. rh neg. Documented By: Keyanna Frias MD, FACOG Resident Activity Tracking Resident Involvement: Resident Care Provided Care Provided: OB Delivery
[2020-05-25] MEDS: LACTATED RINGER'S 1,000 ML IV PRN ×2 (14:15→17:20)
--- NOTE | 2020-05-25 14:43 | Anesthesiology Consultation ---
Date of Service May 25, 2020 Assessment & Plan (1) Encounter for pre-operative examination: Chart Review Chart Review: Acceptable Risk for Labor Epidural History Height/Weight Height: 5 ft 4 in Weight: 76.204 kg Allergies Allergy/AdvReac Type Severity Reaction Status Date / Time Iodinated Contrast Media Allergy Intermediate ASTHMA Verified 05/24/20 16:10 ATTACK Medications Home Medications Medication Instructions Recorded Confirmed Last Taken fluticasone 100 mcg-salmeterol 50 1 inh INHALATION BID #180 ea 08/24/19 05/24/20 05/19/20 08:00 mcg/dose blistr powdr for inhalation acetone (urine) test #50 ea 12/31/19 05/24/20 Unknown blood sugar diagnostic #150 ea 12/31/19 05/24/20 Unknown blood-glucose meter #1 ea 12/31/19 05/24/20 Unknown lancets 33 gauge #150 ea 12/31/19 05/24/20 Unknown albuterol sulfate 90 mcg/actuation 2 puff INH UD PRN #18 g 04/15/20 05/24/20 04/23/20 21:00 aerosol inhaler cetirizine 10 mg tablet 10 mg PO DAILY #60 tab 04/15/20 05/24/20 05/19/20 08:00 vit no.[id number] 800 tab PO DAILY 04/25/20 05/24/20 05/19/20 08:00 [ Vitamin] ondansetron HCl 4 mg tablet 4 mg PO Q8H PRN 05/24/20 05/24/20 Unknown Active Medications Generic Name Dose Route Start Last Admin Trade Name Freq PRN Reason Stop Dose Admin Lactated Ringer's 1,000 mls @ 125 mls/hr 05/25/20 14:01 05/25/20 14:15 Lr IV 05/27/20 14:00 999 mls/hr .Q8H PRN Administration L&D Protocol Protocol NPO Last Intake of Fluids Comment: Sips Date Last Intake of Solids: 05/25/20 Time Last Intake of Solids: 12:30 Past Medical History Medical History Abscess Acute gastritis Asthma Breast lump Breast lump or mass Encounter for anatomic survey Gestational diabetes mellitus (GDM) affecting IBS (irritable bowel syndrome) Low back pain Migraine Night sweats Polyuria Suprapubic discomfort Past Family History Family History Grandmother (Maternal) Stroke Grandfather (Maternal) Hyperlipidemia Father Hypertension Grandfather Diabetes Hypertension Cancer skin Aunt Cancer thyroid, melanoma Uncle Cancer skin Mother Thyroid disease Denies family history of Ovarian cancer Breast cancer Colorectal cancer Past Surgical History Surgical History Hx laparoscopic cholecystectomy (03/26/19) Laparoscopic cholecystectomy. Dr. Quintana 03/26/19 S/P colonoscopy Status post wisdom tooth extraction Social History Smoking Status: Never smoker Hx Alcohol Use: No Hx Substance Use: No Physical Exam Vital Signs Last Vital Signs Temp 36.8 C 05/25/20 14:12 Pulse 82 05/25/20 16:10 Resp 18 05/25/20 14:12 BP 107/56 L 05/25/20 16:10 Testing Laboratory Results 05/25/20 14:22
[2020-05-25] MEDS ORDERED: SODIUM CHLORIDE 0.9% INJ 10 ML VIAL ONE (15:02)
[2020-05-25] MEDS ORDERED: BUPIVACAINE 0.25% 30 ML VIAL ONE (15:02)
[2020-05-25] MEDS ORDERED: ePHEDrine sulfate 50 MG/ML AMP ONE (15:02)
[2020-05-25] MEDS ORDERED: fentaNYL 2MCG/ML ROPIVACAINE 1.25MG/ML 100 ML BAG EPI ONE (15:03)
[2020-05-25] MEDS ORDERED: fentaNYL citrate 100 MCG/2 ML VIAL ONE (15:03)
[2020-05-25 15:33] LABS: Hematocrit (blood only) 36.1 % (37-47); Hemoglobin 12.4 g/dL (12.0-16.0); Mean Corpuscular Hemoglobin 30.8 pg (25-34); Mean Corpuscular Hgb Conc 34.3 g/dL (32-36); Mean Corpuscular Volume 89.8 fL (80-100); Mean Platelet Volume 10.3 fL (7.4-10.4); Platelet Count 185 K/uL (130-400); RDW Coefficient of Variation 13.3 % (11.5-14.5); RDW Standard Deviation 43.8 fL (36.4-46.3); Red Blood Count 4.02 M/uL (4.2-5.4); White Blood Count 8.33 K/uL (4.8-10.8)
--- NOTE | 2020-05-25 16:56 | Labor Progress Brief Note ---
Date of Service May 25, 2020 Subjective Reason For Note: Routine Evaluation feeling stronger ctx, ready for arom Assessment & Plan (1) Active labor at term: (2) Diet controlled gestational diabetes mellitus (GDM), antepartum: (3) Need for rhogam due to Rh negative mother: some cx change. will see how arom augments labor pattern. fhts categ 1. pt not ready for epidural. may opt to walk. rh neg, rhogam eval pp. covid neg. check bsg now and q2hr in labor. Admission and Anticipated Discharge Date Admission Date: May 25, 2020 Physical Exam Constitutional: WD/WN, vitals as above Genitourinary: Manual OB Exam: + cervical dilation 6 cm, + cervical effacement (75%), + station -2 and + amniotic fluid (AROM) clear OB Exam Monitor Tracing: + external FHT monitor used, + external uterine monitor used (q3-4), + category I and + normal FHT variability [facility] ([facility]) Vital Signs (Past 12 Hours) Vital Signs Temp Pulse Resp BP Pulse Ox 05/25/20 16:52 83 124/73 05/25/20 16:51 90 100 05/25/20 16:49 103 H 92 05/25/20 16:46 77 99 05/25/20 16:40 73 127/74 05/25/20 16:10 82 107/56 L 05/25/20 14:12 98.2 F 18 05/25/20 13:44 98.1 F 92 H 20 123/69 Coding Level of Care Code None Diagnoses Active labor at term Diet controlled gestational diabetes mellitus (GDM), antepartum O24.410 Need for rhogam due to Rh negative mother Z29.13
[2020-05-25] MEDS ORDERED: NALOXONE HCL 1 MG in SODIUM CHLORIDE 0.9% 1000ML 1,000 ML IV PRN (17:11)
[2020-05-25] MEDS ORDERED: NALOXONE HCL 0.4 MG/1 ML VIAL/CARP IV PRN (17:11)
[2020-05-25] MEDS ORDERED: ONDANSETRON INJ 2 MG/ML 2 ML VIAL IV PRN (17:11)
[2020-05-25] MEDS ORDERED: ePHEDrine sulfate 50 MG/ML AMP IV PRN (17:11)
[2020-05-25] MEDS ORDERED: fentaNYL 2MCG/ML ROPIVACAINE 1.25MG/ML 100 ML BAG EPI PRN (17:11)
--- NOTE | 2020-05-25 19:52 | Labor Progress Brief Note ---
Date of Service May 25, 2020 Subjective Reason For Note: Routine Evaluation pt comfortable with epidural. pit infusing. cx recently checked by nurse --> Assessment & Plan (1) Active labor at term: (2) Need for rhogam due to Rh negative mother: (3) Diet controlled gestational diabetes mellitus (GDM), antepartum: good cx change, fhts categ 1, anticipate . Admission and Anticipated Discharge Date Admission Date: May 25, 2020 Physical Exam Genitourinary: Manual OB Exam: + cervical dilation (per nurse) 8 cm OB Exam Monitor Tracing: + external FHT monitor used (135 mod variability), + external uterine monitor used (q2), + category I and + normal FHT variability Results & Data ([facility]) Vital Signs (Past 12 Hours) Vital Signs Temp Pulse Resp BP Pulse Ox 05/25/20 19:46 85 99 05/25/20 19:44 84 118/70 05/25/20 19:41 86 99 05/25/20 19:36 84 100 05/25/20 19:31 84 100 05/25/20 19:26 86 100 05/25/20 19:21 81 100 05/25/20 19:16 78 100 05/25/20 19:14 83 114/77 05/25/20 19:11 79 100 05/25/20 19:10 98.2 F 18 05/25/20 19:06 76 100 05/25/20 19:01 79 99 05/25/20 18:56 75 100 05/25/20 18:51 73 100 05/25/20 18:46 77 100 05/25/20 18:44 74 98/53 L 05/25/20 18:41 76 100 05/25/20 18:36 73 99 05/25/20 18:31 74 100 05/25/20 18:29 72 93 05/25/20 18:26 73 100 05/25/20 18:21 93 H 100 05/25/20 18:17 82 93 05/25/20 18:16 79 100 05/25/20 18:11 79 127/72 99 05/25/20 18:10 97.7 F 16 05/25/20 18:06 77 100 05/25/20 18:05 70 102/61 05/25/20 18:02 69 88 L 05/25/20 18:01 79 100 05/25/20 17:59 75 113/69 05/25/20 17:56 80 99 05/25/20 17:55 79 18 121/75 05/25/20 17:51 76 100 05/25/20 17:50 74 131/70 05/25/20 17:46 74 100 05/25/20 17:45 76 126/73 05/25/20 17:41 79 99 05/25/20 17:40 18 05/25/20 17:39 77 124/75 05/25/20 17:36 86 100 05/25/20 17:34 82 131/75 05/25/20 17:31 82 98 05/25/20 17:29 82 128/71 05/25/20 17:26 83 98 05/25/20 17:25 86 16 121/76 05/25/20 17:21 81 99 05/25/20 17:20 82 117/102 H 05/25/20 17:16 79 99 05/25/20 17:14 86 122/69 05/25/20 17:11 79 99 05/25/20 17:10 18 05/25/20 17:09 81 127/68 05/25/20 17:06 81 127/71 99 05/25/20 17:03 80 124/59 L 05/25/20 17:01 78 126/75 98 05/25/20 17:00 20 05/25/20 16:56 92 H 129/84 100 05/25/20 16:52 83 124/73 05/25/20 16:51 90 100 05/25/20 16:49 103 H 92 05/25/20 16:46 77 99 05/25/20 16:40 97.5 F L 73 20 127/74 05/25/20 16:10 82 107/56 L 05/25/20 14:12 98.2 F 18 05/25/20 13:44 98.1 F 92 H 20 123/69 Coding Level of Care Code None Diagnoses Active labor at term Need for rhogam due to Rh negative mother Z29.13 Diet controlled gestational diabetes mellitus (GDM), antepartum O24.410
[2020-05-25] MEDS ORDERED: ACETAMINOPHEN 325 MG TAB PO PRN (21:00)
[2020-05-25] MEDS ORDERED: oxyCODONE/ACETAMINOPHEN 5mg/325mg TAB PO PRN (21:00)
--- NOTE | 2020-05-25 21:03 | Delivery Summary ---
Vaginal Delivery Summary Date of Service May 25, 2020 The patient dilated to complete and pushed to deliver a viable male infant Apgars 9 and 9 via over small vaginal laceration. Mouth and nose bulb suctioned at perineum. Shoulders and body delivered with ease. was vigorous and crying at . Cord clamped at 30 seconds of life and infant to maternal abdomen where the cord was then doubly clamped and cut. Placenta delivered spontaneously and intact, three-vessel cord. Hemostasis achieved with dilute pitocin and uterine massage. Laceration repaired with 4-0 vicryl. Cervix and sulci intact. EBL 300 cc. Mother and baby stable recovery. Vaginal Delivery Summary [facility] Vaginal Delivery Charge Delivery Type Details: [facility]
[2020-05-25] MEDS ORDERED: DIPHTHERIA/TETANUS/PERTUSSIS 0.5 ML SYR/VIAL IM ONE (21:18)
[2020-05-25] MEDS ORDERED: BENZOCAINE 20% AER SPR 82.5 GM CAN EXT PRN (21:18)
[2020-05-25] MEDS ORDERED: SUPERCREAM 0.870% 15 GM JAR EXT PRN (21:18)
[2020-05-25] MEDS ORDERED: OXYTOCIN 20 UNITS in LACTATED RINGER'S 1,000 ML IV SCH (21:18)
[2020-05-25] MEDS ORDERED: HYDROCORTISONE ACETATE 25 MG SUPP PR PRN (21:18)
--- NOTE | 2020-05-25 21:23 | Anesthesia Procedure Note ---
Date of Service May 25, 2020 Anesthesia Post Epidural Note Vital Signs Vital Signs: Temp Pulse Resp BP Pulse Ox 36.8 C 79 18 130/71 98 05/25/20 19:10 05/25/20 21:11 05/25/20 20:19 05/25/20 21:11 05/25/20 21:01 Notes Mental Status: alert / awake / arousable and participated in evaluation Nausea / Vomiting: adequately controlled Pain: adequately controlled Airway Patency, RR, SpO2: stable & adequate BP & HR: stable & adequate Hydration State: stable & adequate Neuraxial Anesthesia: was administered and sensory block is resolving Anesthetic Complications: no major complications apparent Epidural: Removed without complications and With tip intact
[2020-05-25] MEDS: DOCUSATE SODIUM 100 MG CAP PO SCH (22:31)
[2020-05-26] MEDS: IBUPROFEN 600 MG TAB PO PRN ×6 (00:45→23:39)
--- NOTE | 2020-05-26 06:51 | Obstetrical Progress Note ---
Date of Service <Cass Fields DO - Last Filed: 05/26/20 06:51> May 26, 2020 Assessment & Plan <Cass Fields DO - Last Filed: 05/26/20 06:51> (1) state: PPD #1 - PNL: Rh negative, RI, GBS neg, COVID neg -- Plan for Rhogam prior to d/c home if baby's blood type is Rh+ - Feels well today. Eating well, voiding well, ambulating well. - Pain well controlled with ibuprofen 600mg Q4H PRN - Routine care -- OOB, ambulation, diet progression as tolerated - After discharge will have 6 week follow-up with Dr. Frias. Subjective <Cass Fields DO - Last Filed: 05/26/20 06:51> Jeanette Dawson is a 34 y/o female who is PPD #1 following spontaneous vaginal delivery at 38 +2 weeks. She reports feeling well overall this morning. Mild abdominal cramping and 4/10 pain well managed on analgesics. Voiding without dysuria. Tolerating meals overnight without difficulty, nausea, or vomiting. Patient has been able to ambulate some. She is passing gas. Has persistent lochia with some improvement this morning. Currently . Review of Systems Denies fever or chills. Denies shortness of breath or cough. Denies chest pain. Denies breast pain. Denies dysuria. Denies leg pain or leg swelling. Denies headache or changes in vision. Physical Exam <Cass Fields DO - Last Filed: 05/26/20 06:51> General: Alert, oriented. No acute distress. Cardiac: Regular rate and rhythm. No murmurs. Respiratory: Clear to auscultation bilaterally a/p, no wheezes/rales/rhonchi. No increased work of breathing. Symmetrical chest rise. No respiratory distress. Abdomen: Soft, nontender, nondistended. Bowel sounds present. Uterus: Uterine fundus firm, palpable at umbilicus. Lower Extremities: No lower extremity edema or swelling. No deep calf pain. Berna's negative bilaterally. Results & Data ([facility]) <Cass Fields DO - Last Filed: 05/26/20 06:51> Vital Signs (Past 12 Hours) Vital Signs Temp Pulse Pulse Resp BP BP Pulse Ox 05/26/20 03:30 36.7 C 70 16 121/70 97 05/25/20 23:55 36.5 C 84 17 128/72 97 05/25/20 22:57 36.9 C 18 05/25/20 22:56 80 118/66 05/25/20 22:41 71 111/66 05/25/20 22:26 90 18 115/66 05/25/20 22:11 68 115/63 05/25/20 21:57 36.9 C 67 18 125/64 05/25/20 21:42 65 16 109/57 L 05/25/20 21:36 78 18 110/57 L 05/25/20 21:11 79 16 130/71 05/25/20 21:01 87 98 05/25/20 20:57 79 93 05/25/20 20:56 83 18 125/68 98 05/25/20 20:51 87 98 05/25/20 20:46 118 H 98 05/25/20 20:44 86 121/66 05/25/20 20:41 77 97 05/25/20 20:36 75 97 05/25/20 20:31 81 92 05/25/20 20:26 86 93 05/25/20 20:21 82 98 05/25/20 20:19 18 05/25/20 20:16 78 105/56 L 96 05/25/20 20:11 74 99 05/25/20 20:06 78 100 05/25/20 20:01 103 H 98 05/25/20 19:56 85 99 05/25/20 19:51 82 98 05/25/20 19:46 85 99 05/25/20 19:44 84 118/70 05/25/20 19:41 86 99 05/25/20 19:36 84 100 05/25/20 19:31 84 100 05/25/20 19:26 86 100 05/25/20 19:21 81 100 05/25/20 19:16 78 100 05/25/20 19:14 83 114/77 05/25/20 19:11 79 100 05/25/20 19:10 36.8 C 18 05/25/20 19:06 76 100 05/25/20 19:01 79 99 05/25/20 18:56 75 100 05/25/20 18:51 73 100 Laboratory Results 05/26/20 05/25/20 05/25/20 Range/Units 06:02 15:25 15:25 WBC (4.8-10.8) K/uL RBC (4.2-5.4) M/uL Hgb (12.0-16.0) g/dL Hct (37-47) % MCV (80-100) fL MCH (25-34) pg MCHC (32-36) g/dL RDW Std Deviation (36.4-46.3) fL RDW Coeff of Jenelle (11.5-14.5) % Plt Count (130-400) K/uL MPV (7.4-10.4) fL COVID-19 Eval Order Covid19 [facility] SARS-CoV-2, RNA, NAAT NEGATIVE (NEGATIVE) Blood Type Pending Antibody Screen Pending Screen Pending 05/25/20 Range/Units 14:22 WBC 8.33 (4.8-10.8) K/uL RBC 4.02 L (4.2-5.4) M/uL Hgb 12.4 (12.0-16.0) g/dL Hct 36.1 L (37-47) % MCV 89.8 (80-100) fL MCH 30.8 (25-34) pg MCHC 34.3 (32-36) g/dL RDW Std Deviation 43.8 (36.4-46.3) fL RDW Coeff of Jenelle 13.3 (11.5-14.5) % Plt Count 185 (130-400) K/uL MPV 10.3 (7.4-10.4) fL COVID-19 Eval Order SARS-CoV-2, RNA, NAAT (NEGATIVE) Blood Type Antibody Screen Screen <Keyanna Frias MD, FACOG - Last Filed: 05/26/20 07:02> Co-Signing Physician Notes Resident Physician Supervision Note: I interviewed and examined the patient. Discussed with Dr. Fields and agree with findings and plan as documented in the note. Any exceptions or clarifications are listed here: doing well, routine care, rhogam eval today. , RI. Documented By: Keyanna Frias MD, FACOG Resident Activity Tracking <Cass Fields, DO - Last Filed: 05/26/20 06:51> Resident Involvement: Resident Care Provided Care Provided: OB Delivery
[2020-05-26] MEDS: PRENATAL VITAMIN 1 TAB PO SCH (07:55)
[2020-05-26] MEDS: DOCUSATE SODIUM 100 MG CAP PO SCH ×2 (07:55→20:27)
[2020-05-27] MEDS: IBUPROFEN 600 MG TAB PO PRN ×2 (05:23→09:43)
--- NOTE | 2020-05-27 07:57 | Obstetrical Progress Note ---
Date of Service <Cass Fields DO - Last Filed: 05/27/20 07:57> May 27, 2020 Assessment & Plan <Cass Fields DO - Last Filed: 05/27/20 07:57> (1) state: PPD #2 - PNL: Rh negative, RI, GBS neg, COVID neg -- Patient received Rhogam on 05/26/20 - Feels well today. Eating well, voiding well, ambulating well. - Pain well controlled with ibuprofen 600mg Q4H PRN - Satisfactory routine care including OOB, ambulation, and diet progression - After discharge will have 6 week follow-up with Dr. Frias. - Plan for d/c home today. Subjective <Cass Fields DO - Last Filed: 05/27/20 07:57> Jeanette Dawson is a 34 y/o female who is PPD #2 following spontaneous vaginal delivery at 38+2 weeks. She reports feeling well overall this morning. Mild abdominal cramping and 3/10 pain (exacerbated during periods of ) well managed on analgesics. Voiding without dysuria. Tolerating meals overnight without difficulty. Patient has been able to ambulate some. She is passing gas and has had a small bowel movement. Has persistent lochia with some improvement this morning. Currently . Review of Systems Denies fever or chills. Denies shortness of breath or cough. Denies chest pain. Denies breast pain. Denies dysuria. Denies leg pain or leg swelling. Denies headache or changes in vision. Physical Exam <Cass Fields DO - Last Filed: 05/27/20 07:57> General: Alert, oriented. No acute distress. Cardiac: Regular rate and rhythm. No murmurs. Respiratory: Clear to auscultation bilaterally a/p, no wheezes/rales/rhonchi. No increased work of breathing. Symmetrical chest rise. No respiratory distress. Abdomen: Soft, nontender, nondistended. Bowel sounds present. Uterus: Uterine fundus firm, palpable 1 cm below umbilicus. Lower Extremities: No lower extremity edema or swelling. No deep calf pain. Berna's negative bilaterally. Results & Data ([facility]) <Cass Fields DO - Last Filed: 05/27/20 07:57> Vital Signs (Past 12 Hours) Vital Signs Temp Pulse Resp BP Pulse Ox 05/26/20 23:40 36.6 C 75 17 105/66 97 <David Marie MD - Last Filed: 05/27/20 08:00> Co-Signing Physician Notes Patient see and agree with the above findings and plan. Stable for discharge Resident Activity Tracking <Cass Fields DO - Last Filed: 05/27/20 07:57> Resident Involvement: Resident Care Provided Care Provided: OB Delivery
[2020-05-27] MEDS: PRENATAL VITAMIN 1 TAB PO SCH (09:16)
[2020-05-27] MEDS: DOCUSATE SODIUM 100 MG CAP PO SCH (09:16)
== END 2020-05-27 14:10 | disposition home or self-care (01) | DRG 807 ==
LOC: OPB 13:32 → 4S1 13:34 → 4S2 23:25